=== PATIENT | female | born 1945 | race Caucasian/White ===

== ENCOUNTER 2024-02-08 12:50 | Emergency (ER) | payer BC, SELFPAY ==
[2024-02-08 12:55] VITALS: BP 142/120
[2024-02-08 12:56] VITALS: BP 168/59
[2024-02-08 12:58] VITALS: BP 168/59
[2024-02-08 13:00] VITALS: BP 153/62
--- NOTE | 2024-02-08 13:03 | ED.GENMED ---
History of Present Illness
General
Chief Complaint: Change in Mental Status
Time Seen by Provider: 02/08/24 12:55
History of Present Illness
History of Present Illness:
79-year-old female presents via EMS from [facility] for evaluation of fatigue and altered mental status. She has chronic myoclonic jerking movements that seem to have worsened as well. On arrival the patient complains of shortness of breath but
denies any other complaints, specifically denies pain. She is oriented to place as well as month and events but confused to year. Does have baseline dementia and a known prior craniotomy for benign brain mass.
Review of Systems
Review of Systems
Allergies reviewed?: Yes
All Other Systems: ROS reviewed and negative except as documented in HPI and ROS
Phy Exam
Physical Exam
Physical Exam:
GEN: Well appearing, NAD, WDWN
Eyes: PERRLA, EOMs intact, no scleral icterus
HENT: NCAT, oral mucosa moist
Lungs: CTAB, no wheezes, rales, rhonchi, normal chest wall excursion
Cardiac: RRR, no M/R/G, no peripheral edema. Radial pulses 2+ bilat
Abdomen: S, NT, ND, NABS, no masses or hepatosplenomegaly
Neuro: AO x 2, no focal deficits to BUE/BLE, normal sensation throughout, frequent myoclonic jerking
MSK: No gross deformity or ecchymosis. No edema. No digital clubbing
Skin: No rashes, petechiae. Normal color, no pallor or jaundice.
Psych: Calm, cooperative, proper hygiene
Course
Orders/Labs/Results
Orders:
Orders
02/08/24 13:00
Electrocardiogram (*1) Urgent
Reason for Study: Fatigue / Weakness
EKG- Treatment ONCE
02/08/24 13:02
CT Head W/o Iv Contrast Urgent
Comment:
Reason For Exam: altered mental status
Straight cath- Treatment ONCE
02/08/24 13:03
Basic Metabolic Panel Urgent
Complete Blood Count/With Diff Urgent
Lactate Level [Lactic Acid] Urgent
02/08/24 13:17
Urinalysis Reflex To Culture Urgent
Date Specimen was Collected: 02/08/24
Time Specimen was Collected: 13:05
Urine Microscopic Reflex Cult Urgent
Urine Culture Urgent
GRACIELA Source: U
Specimen Description:
Date Specimen was Collected: 02/08/24
Time Specimen was Collected: 13:05
02/08/24 15:31
0.9% Sodium Chloride 500 ml [Nss] 500 ml IV BOLUS
Fosfomycin [Monurol] 3 gm PO ONCE ONE
02/08/24 15:32
CR Chest - 2 Views Urgent
Comment:
Reason For Exam: SOB
02/08/24 15:43
Fosfomycin [Monurol] 3 gm .ROUTE .STK-MED ONE
Abnormal Lab Results
02/08/24 02/08/24
13:03 13:17
RBC 4.04 L 10^6/uL
(4.20-5.40)
Hgb 10.4 L g/dL
(12.0-16.0)
Hct 33.6 L %
(37.0-47.0)
MCH 25.7 L pg
(27.0-31.0)
MCHC 31.0 L g/dL
(33.0-37.0)
Absolute Monos (auto) 0.8 H 10^3/uL
(0.1-0.6)
Carbon Dioxide 31 H mmol/L
(22-30)
Glucose 142 H mg/dl
(70-99)
Urine Nitrite (Reflex) Positive A
(Negative)
Urine Bacteria (Reflex) Many A
(Negative)
02/08/24 13:03
02/08/24 13:03
Vital Signs
Initial and Last Documented VS:
Initial Vital Signs
BP
142/120
02/08/24 12:55
Last Documented Vital Signs
Temp Pulse Resp BP Pulse Ox
98.1 F 54 15 168/67 96
02/08/24 13:16 02/08/24 15:45 02/08/24 15:45 02/08/24 15:00 02/08/24 15:45
MDM/Problems Addressed
MDM/Problems Addressed:
Overall workup is unrevealing of acute pathology. Throughout emergency department stay the patient's mental status did gradually improved. She has noted to have bacteriuria which may explain her transient lethargy thus we will treat this with a
single dose of fosfomycin although lack of leukocytes and associated symptoms makes UTI less likely, that said I have no prior record of asymptomatic bacteriuria that would warrant withholding antibiotics at this time. She is suitable for discharge
to home. In regards to the myoclonic jerking this is likely related to her underlying dementia and prior intracranial surgery however recommend outpatient neurology follow-up for this
*Critical Care Note
Total Time (30-74mins, 75-104mins- exclusive of procedures): Not Applicable
ED Attending Note
-
Portions of this chart may have been created with voice recognition software.� Occasional wrong word or��sound alike� substitutions may have occurred due to the inherent limitations of voice recognition software.
Discharge Plan
Departure
Patient Disposition: Home (Routine Discharge)
Date of Disposition: 02/08/24
Time of Disposition: 16:37
Patient with high blood pressure during this ER visit?: No
Discharge Problem:
Acute encephalopathy, Bacteriuria, Myoclonic disorder
Instructions: Altered Mental Status (DC)
Referrals:
UNKNOWN - PT NOT,INTERVIEWE [Family Provider] -
Activity Restrictions/Additional Instructions:
Follow-up with neurology as an outpatient regarding the involuntary muscle movements however these are likely related to your dementia as well as prior brain surgery
We gave you a one-time antibiotic for possible UTI, you do not need any further antibiotics
If symptoms worsen do not hesitate to return to the ER
Interventions
Interventions:
*Risk Screen - Suicide Last Done: 02/08/24 13:06
*General Assessment Last Done: 02/08/24 13:06
*Neglect/Abuse Screening Last Done: 02/08/24 13:06
ED- Fall Risk Assessment Last Done: 02/08/24 13:20
*ED COVID-19 Vaccine History Last Done: 02/08/24 13:06
*Nursing Disposition Last Done: 02/08/24 17:29
ED- Pulmonary Assessment Last Done: 02/08/24 13:20
ED-Psychological Assessment Last Done: 02/08/24 17:30
ED- Neurological Assessment Last Done: 02/08/24 17:29
ED- Cardiac Assessment Last Done: 02/08/24 13:20
ED Swallowing Screen Last Done: 02/08/24 15:45
Discharge Date and Time
Discharge Date/Time: 02/08/24 17:30
Print Language: YAKUT
[2024-02-08 13:19] LABS: % Basophils 0.8 % (0-2); % Eosinophils 2.9 % (0-6); % Immature Granulocytes 0.1 % (0-0.5); % Lymphocytes 21.8 % (20.5-51.1); % Monocytes 8.7 % (1.7-9.3); % Neutrophils 65.7 % (42.2-75.2); Absolute Basophils 0.1 10^3/uL (0-0.2); Absolute Eosinophils 0.3 10^3/uL (0-0.7); Absolute Monocytes 0.8 10^3/uL (0.1-0.6); Absolute Neutrophils 5.9 10^3/uL (1.4-6.5); Hematocrit 33.6 % (37.0-47.0); Hemoglobin 10.4 g/dL (12.0-16.0); Mean Corpuscular Hgb 25.7 pg (27.0-31.0); Mean Corpuscular Volume 83.2 fL (81.0-99.0); Mean Platelet Volume 10.4 fL (7.4-10.4); Nucleated Red Blood Cells % 0 %; Platelet Count 260 10^3/uL (130-400); Red Blood Cell Count 4.04 10^6/uL (4.20-5.40); Red Cell Dist. Width 14.2 % (11.5-14.5)
[2024-02-08 13:29] LABS: Lactic Acid 1.9 mmol/L (0.7-2.0)
[2024-02-08 13:47] LABS: Blood Urea Nitrogen 17 mg/dl (7-17); Calcium 8.5 mg/dl (8.4-10.2); Carbon Dioxide 31 mmol/L (22-30); Chloride 102 mmol/L (98-107); Glucose 142 mg/dl (70-99); Sodium 141 mmol/L (135-145); eGFR > 60.00
[2024-02-08 13:56] LABS: Urine Albumin Negative (Neg - Trace); Urine Bilirubin Negative (Negative); Urine Character Slightly Cloudy (Clear); Urine Color Yellow; Urine Glucose Negative (Negative); Urine Ketone Negative (Negative); Urine Leukocyte Negative (Negative); Urine Nitrite Positive (Negative); Urine Occult Blood Negative (Negative); Urine Urobilinogen Negative (Neg - 1+)
[2024-02-08 14:16] VITALS: BP 174/77
[2024-02-08 15:00] VITALS: BP 168/67
[2024-02-08 15:18] LABS: Urine Amorphous Seen; Urine Bacteria Many (Negative); Urine Red Blood Cell 0-2 /HPF (0-2); Urine White Cell 0-2 /HPF (0-5)
[2024-02-08] MEDS: MONUROL 3 GM PO (15:47)
[2024-02-08] MEDS: NSS 500 IV (15:47)
== END 2024-02-08 17:30 | disposition home or self-care (01) ==
LOC: EMR 12:50
PROVIDERS: Physician Assistant; EMERGENCY PHYSICIAN Emergency Medicine
DX: G93.40 Encephalopathy, unspecified (principal); G25.3 Myoclonus; R82.71 Bacteriuria; F03.90 Unspecified dementia, unspecified severity, without behavioral disturbance, psychotic disturbance, mood disturbance, and anxiety
CPT/HCPCS: 99285; 70450; 71046; 80048; 81003; 81015; 83605; 85025; 87086; 87088; 93005